=== PATIENT | male | born 1995 | race Caucasian/White ===

== ENCOUNTER 2016-10-22 21:20 | Emergency (ER) | payer OTHER ==
[~2016-10-22] VITALS: Ht 172.7 cm; Wt 87.4 kg
[2016-10-22 21:59] VITALS: BP 124/69; PULSE 60; RESP 18; TEMP 98.1; O2SAT 99
--- NOTE | 2016-10-22 22:20 | PD ---
HPI . right foot injury Chief Complaint: Injury Time Seen by Provider: 22:17 Travel History International Travel<30 days: No Contact w/Intl Traveler<30days: No Traveled to known affect area: No History of Present Illness HPI 21-year-old male with long chain metabolic fatty acid disorder here with complaints of right foot injury and pain after falling in a hole in the ocean sand while trying to rescue a child. 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 He immediately lunged into action and unfortunately twisted his foot into a hole and falling. He started experiencing right foot pain immediately. Pain is rated as 9/10 and radiates up to the calf. He has difficulty moving his toes, dorsiflexing and plantar flexing. He denies any head injury or loss of consciousness. He is accompanied by both of his parents. [facility] Past Medical History Medical History: Denies Significant Hx Social History Tobacco Use: No Allergies-Medications (Allergen,Severity, Reaction): Coded Allergies: Ceclor (Verified Allergy, Severe, Anaphylaxis, 10/22/16) Ciprofloxacin (Verified Allergy, Severe, Anaphylaxis, 10/22/16) Levaquin (Verified Allergy, Severe, Anaphylaxis, 10/22/16) Penicillin (Verified Allergy, Severe, Anaphylaxis, 10/22/16) Reported Meds & Prescriptions Reported Meds & Active Scripts Active No Active Prescriptions or Reported Medications Review of Systems General / Constitutional: No: Fever Eyes: No: Visual changes HENT: No: Headaches Cardiovascular: No: Chest Pain or Discomfort Respiratory: No: Shortness of Breath Gastrointestinal: No: Abdominal Pain Genitourinary: No: Dysuria Musculoskeletal: Positive: Pain (right foot pain) Skin: No Rash Neurologic: No: Weakness Psychiatric: No: Depression Endocrine: No: Polydipsia Hematologic/Lymphatic: No: Easy Bruising Physical Exam Narrative GENERAL: AAO x 3, no acute distress, Well-nourished, well-developed patient. SKIN: Warm and dry. No visible rashes or bruising. HEAD: Normocephalic and atraumatic. EYES: No scleral icterus. No injection or drainage. EOM intact, PERRLA ENT: No nasal drainage noted. Mucous membranes pink. Airway patent. NECK: Supple, trachea midline. No JVD. CARDIOVASCULAR: Regular rate and rhythm without murmurs, gallops, or rubs. RESPIRATORY: Breath sounds equal bilaterally. No accessory muscle use. No rhonchi or rales. GASTROINTESTINAL: Abdomen soft, non-tender, nondistended. EXTREMITIES: No cyanosis or edema. Tenderness to dorsum of foot and plantar aspect near cuneiform bones. Negative olmedo's test. BACK: Nontender without obvious deformity. No CVA tenderness. PSYCH: AAO x 3, normal affect. Data Data Last Documented VS Vital Signs Date Time Temp Pulse Resp B/P Pulse Ox O2 Delivery O2 Flow Rate FiO2 10/22/16 21:59 98.1 60 18 124/69 99 Orders Foot, Complete ([id number]) (10/22/16 22:15) Ketorolac Inj (Toradol Inj) (10/22/16 22:30) MDM Medical Decision Making Medical Screen Exam Complete: Yes Emergency Medical Condition: Yes Medical Record Reviewed: Yes Differential Diagnosis foot sprain, foot fracture, less likely ankle fracture Narrative Course 21-year-old male with long chain metabolic fatty acid disorder here with complaints of right foot injury and pain after falling in a hole in the ocean sand while trying to rescue a child. 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 He immediately lunged into action and unfortunately twisted his foot into a hole and falling. He started experiencing right foot pain immediately. Pain is rated as 9/10 and radiates up to the calf. He has difficulty moving his toes, dorsiflexing and plantar flexing. He denies any head injury or loss of consciousness. He is accompanied by both of his parents. Patient seen and examined. Xray of the right foot ordered. Xray is negative for acute fracture. Likely foot sprain. Discussed with patient and family Recommend RICE Recommend no swimming at work. Ibuprofen given. F/u with PCP and ortho if pain persists past 7-10 days. Patient verbalized understanding of instructions, questions were answered, and thanked me for their care. I advised them if their condition worsens, please return to the nearest emergency room for further care. Diagnosis Primary Impression: Right foot sprain Qualified Code: S93.601A - Right foot sprain, initial encounter Admitting Information Admitting Physician Requests: Admit Patient Instructions: Foot Sprain (ED), General Instructions Departure Forms: Tests/Procedures, Work Release Enter return to work date: Oct 26, 2016 Special Instructions: no swimming or walking long distances for 1 week Additional Instructions: Rest the affected area as much as possible. Ice this area for 15-20 minutes at a time. You can do this every hour or as much as tolerated. Keep this area compressed (john bandage) as tolerated. Elevate this area. Use ibuprofen as needed for pain and inflammation. If pain persists past 7-10 days, please follow-up with primary care provider or orthopedist. Please return to emergency department if your symptoms return or worsen. Follow up with your primary care provider. Take medications as prescribed. Scripts No Active Prescriptions or Reported Meds Disposition: 01 DISCHARGE HOME Condition: Stable Madina Flynn Oct 22, 2016 22:20
[2016-10-22] MEDS ORDERED: KETOROLAC TROMETHAMINE 60 MG/2 ML (IM) VIAL IM ONE (22:30)
--- NOTE | 2016-10-22 22:55 | RADHPO ---
EXAM DATE/TIME: 10/22/2016 22:24 [place] COMPARISON: No previous studies available for comparison. INDICATIONS : Right foot pain; fell in hole today. MEDICAL HISTORY : None. SURGICAL HISTORY : None. ENCOUNTER: Initial ACUITY: 1 day PAIN SCORE: 10/10 LOCATION: Right foot. FINDINGS: Three view examination of the right foot demonstrates no dislocation, or fracture. The tarsal bones appear intact. The interphalangeal and metatarsophalangeal joints are intact. The calcaneus is int act. Bony mineralization is normal. CONCLUSION: 1. No acute fracture. There is soft tissue swelling around the posterior foot and ankle. Amilcar Miller MD on October 22, 2016 at 22:48 Board Certified Radiologist. This report was verified electronically.
[2016-10-22] MEDS ORDERED: IBUP800T23 PO (22:59)
== END 2016-10-22 23:29 | disposition home or self-care (01) ==
LOC: PHEFT 21:20
DX: S93.601A Unspecified sprain of right foot, initial encounter (principal); W18.42XA Slipping, tripping and stumbling without falling due to stepping into hole or opening, initial encounter; Y92.832 Beach as the place of occurrence of the external cause; Y99.0 Civilian activity done for income or pay
CPT/HCPCS: 73630; 96372; 99283; E0113; J1885

== ENCOUNTER 2017-06-04 21:42 | Emergency (ER) | payer OTHER ==
[~2017-06-04] VITALS: Ht 172.7 cm; Wt 87.6 kg
[~2017-06-04 21:42] MED LIST: IBUP1TAB7 PO
[2017-06-04 21:46] VITALS: BP 143/63; PULSE 94; RESP 18; TEMP 98.3; O2SAT 100
[2017-06-04 21:58] VITALS: BP 143/63; PULSE 94; RESP 16; TEMP 98.3; O2SAT 100
[2017-06-04] MEDS ORDERED: CYCL10TA PO (22:45)
[2017-06-04] MEDS ORDERED: KETOROLAC TROMETHAMINE 60 MG/2 ML (IM) VIAL IM ONE (22:45)
[2017-06-04] MEDS ORDERED: IBUP1TAB7 PO (22:45)
--- NOTE | 2017-06-04 22:47 | PD ---
HPI Chief Complaint: Musculoskeletal Complaint Time Seen by Provider: 22:37 Travel History International Travel<30 days: No Contact w/Intl Traveler<30days: No Traveled to known affect area: No History of Present Illness HPI The patient is a 21-year-old male that complains of pain on the left trapezius between the neck and shoulder. This is been going on for a month. 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 He denies any trauma, chest pain , shortness of breath, nausea, vomiting or diarrhea. PFSH Past Medical History Influenza Vaccination: No Past Surgical History Ear Surgery: Yes (LASIX) Tympanostomy Tube: Yes Social History Alcohol Use: Yes (Socially) Tobacco Use: No Substance Use: No Allergies-Medications (Allergen,Severity, Reaction): Coded Allergies: cefaclor (Verified Allergy, Severe, Anaphylaxis, 06/04/17) ciprofloxacin (Verified Allergy, Severe, Anaphylaxis, 06/04/17) levofloxacin (Verified Allergy, Severe, Anaphylaxis, 06/04/17) penicillin G (Verified Allergy, Severe, Anaphylaxis, 06/04/17) Reported Meds & Prescriptions Reported Meds & Active Scripts Active Ibuprofen 800 Mg Tab 800 Mg PO TID Review of Systems Except as stated in HPI: all other systems reviewed are Neg Physical Exam Narrative GENERAL: The patient is alert, oriented 3 in moderate apparent distress with his left trapezius discomfort. His vital signs show pulse of 94 and blood pressure 143/63 but otherwise normal. SKIN: Focused skin assessment warm/dry. HEAD: Atraumatic. Normocephalic. EYES: Pupils equal and round. No scleral icterus. No injection or drainage. ENT: No nasal bleeding or discharge. Mucous membranes pink and moist. NECK: Trachea midline. No JVD. No cervical spine tenderness or deformity is noted. CARDIOVASCULAR: Regular rate and rhythm. No murmur appreciated. RESPIRATORY: No accessory muscle use. Clear to auscultation. Breath sounds equal bilaterally. GASTROINTESTINAL: Abdomen soft, non-tender, nondistended. Hepatic and splenic margins not palpable. MUSCULOSKELETAL: No obvious deformities. No clubbing. No cyanosis. No edema. There is no erythema but there is exquisite tenderness over the trapezius between his left shoulder and neck. The supraspinatus may also be tender. No swelling is noted. The patient is too painful to abduct his left shoulder. He does not have any tenderness directly on the shoulder in the area of the rotator cuff tears. He does not have any cervical spine tenderness. NEUROLOGICAL: Awake and alert. No obvious cranial nerve deficits. Motor grossly within normal limits. Normal speech. PSYCHIATRIC: Appropriate mood and affect; insight and judgment normal. Data Data Last Documented VS Vital Signs Date Time Temp Pulse Resp B/P (MAP) Pulse Ox O2 Delivery O2 Flow Rate FiO2 06/04/17 22:01 16 06/04/17 21:58 98.3 94 143/63 (89) 100 Orders Orders Ketorolac Inj (Toradol Inj) (06/04/17 22:45) Splint Or Brace Apply/Monitor (06/04/17 22:38) MDM Medical Decision Making Medical Screen Exam Complete: Yes Emergency Medical Condition: Yes Medical Record Reviewed: Yes Differential Diagnosis Muscle strain supraspinatus/trapezius, bursitis, fracture neck-unlikely, rotator cuff tear Narrative Course There is no neck tenderness and the patient does not appear to have any cervical spine or other fracture. He does have exquisite tenderness over the supraspinatus/trapezius on the left. Impression: Muscle strain left shoulder Diagnosis Primary Impression: Muscle strain Additional Instructions: If you use a heating pad, turned on its lowest setting an interposed a towel between your skin and the pad. Heat is useful but hot can be dangerous. Follow -up with your primary care physician. The ibuprofen is intended to be taken 3 times daily. Med/Other Pt SpecificInfo: Prescription(s) given Scripts Cyclobenzaprine (Flexeril) 10 Mg Tab 10 MG PO TID for Muscle Spasm, #60 TAB 0 Refills Prov: James Casey MD 06/04/17 Ibuprofen (Ibuprofen) 800 Mg Tab 800 MG PO TID, #33 TAB 0 Refills Prov: James Casey MD 06/04/17 Disposition: 01 DISCHARGE HOME Condition: Stable James Casey MD Jun 04, 2017 22:47
[2017-06-04 22:54] VITALS: BP 131/62
== END 2017-06-04 23:01 | disposition home or self-care (01) ==
LOC: PHED 21:42
DX: S46.912A Strain of unspecified muscle, fascia and tendon at shoulder and upper arm level, left arm, initial encounter (principal); X50.9XXA Other and unspecified overexertion or strenuous movements or postures, initial encounter
CPT/HCPCS: 96372; 99284; J1885